=== PATIENT | male | born 1955 | race Caucasian/White ===

== ENCOUNTER 2020-01-25 09:38 | Inpatient (IN) | payer BC, SELFPAY ==
[~2020-01-25] VITALS: Ht 165.1 cm; Wt 97.5 kg
--- NOTE | 2020-01-25 09:50 | NUR ---
PT TO ROOM 14, AWAITING MD BARBOZA.
--- NOTE | 2020-01-25 10:19 | NUR ---
LAB AT BEDSIDE WITH DRAW, EKG OBTAINED
--- NOTE | 2020-01-25 10:29 | NUR ---
X RAY AT BEDSIDE
--- NOTE | 2020-01-25 10:58 | NUR ---
PT ARRIVED FROM HOME C/O INTERMITTENT SOB, DRY COUGH, LOW 02 SATURATIONS AT HOME, PT STS HE WOKE UP THIS MORNING AND CHECKED HIS 02 SAT WITH A PULSE OX HE HAS AT HOME, IT WAS IN THE LOW 80'S, DRY COUGH, FEVER, PT STS HE STARTED WITH THESE SYMPTOMS ON JANUARY 12, 2020 AND PROGRESSED, STS HE WAS TESTED FOR COVID 19 ON JANUARY 21, 2020 AND WAS TOLD HE WAS POSITIVE ON JANUARY 24, 2020. STS HIS FAMILY IS ALSO POSITIVE FOR COVID, PT WAS PLACED IN BED 14, AAOX4, NO ACUTE RESPIRATORY DISTRESS NOTED, CURRENT 02 SAT IS 97 % RA, PLACED IN GOWN, CONNECTED TO FULL CM, IV ACCESS OBTAINED, URINE SAMPLE OBTAINED AND SENT, SAFETY PRECAUTIONS IN PLACE, ISOLATION PRECAUTIONS IN PLACE, PT WEARING OWN FACEMASK, CALL LIGHT WITHIN REACH, WILL MONITOR.
[2020-01-25 11:02] LABS: CALCIUM 8.5 mg/dL (8.5-10.1); CARBON DIOXIDE 28.2 mmol/L (21-32); CREATININE SERUM 1.3 mg/dL (0.7-1.3); POTASSIUM SERUM 4.1 mmol/L (3.5-5.1)
--- NOTE | 2020-01-25 11:04 | NUR ---
CONTACTED RT REGARDING ABG DRAW, STS SHE WILL BE COMING TO ER FOR DRAW
[2020-01-25 11:08] LABS: BILIRUBIN TOTAL 1.1 mg/dL (0.20-1.00); C REACTIVE PROTEIN 8.3 mg/dL (<=0.9); TOTAL PROTEIN, SERUM 7.7 g/dL (6.4-8.2)
[2020-01-25 11:18] LABS: ALBUMIN 2.7 g/dL (3.4-5.0)
[2020-01-25 11:27] LABS: BASOPHIL % 1.2 % (0-2); PLATELET COUNT 217 x10^3mcL (130-400); RED CELL DISTRIBUTION WIDTH 12.7 % (11.5-14.5)
[2020-01-25 11:41] LABS: microscopic required? YES; urine erythrocyte 1+ (NEGATIVE)
[2020-01-25] MEDS ORDERED: SIMVASTATIN5 M2 PO (13:03)
[2020-01-25] MEDS ORDERED: LOSARTAN POTASS25 M1 PO (13:03)
[2020-01-25] MEDS ORDERED: LANTI SC (13:04)
[2020-01-25] MEDS ORDERED: FORTAMET500 M1 (13:04)
[2020-01-25] MEDS ORDERED: VICTOZA6 MG/M1 SC (13:04)
--- NOTE | 2020-01-25 14:13 | NUR ---
RECEIVED PT FROM ED VIA LESVIA, CAME IN DUE TO SOB, COUGH AND LOW OXYGEN SATURATION. PT STATED THAT HE FOUND OUT THAT HE WAS POSITIVE FOR COVID YESTERDAY. AAOX4. DENIES HEADACHE/DIZZINESS. ABLE TO FOLLOW COMMANDS. NO SOB NOTED, LUNG SOUNDS DIMINISHED ON AUSCULTATION. DENIES CHEST PAIN/PRESSURE. DENIES ABDOMINAL DISCOMFORT. BOWEL SOUNDS ACTIVE. VOIDS. IV SITE PATENT AND INTACT. SIDE RAILS UPX2. CALL LIGHT ON REACH. ENDORSED TO PRIMARY NURSE MARU FOR CONTINUITY OF CARE
[2020-01-25] MEDS ORDERED: GLUMETZA1000 MG PO (14:30)
[2020-01-25 14:37] VITALS: BP 149/80
[2020-01-25 14:44] VITALS: Ht 165.1 cm; Wt 97.5 kg
[2020-01-25 15:32] LABS: AMPHETAMINE QUAL UR NONE DETECTED (See below)
[2020-01-25 15:44] LABS: PHOSPHOROUS 3.9 mg/dL (2.5-4.9)
[2020-01-25 15:45] LABS: CHOLESTEROL/HDL RATIO 3.8
[2020-01-25 15:53] LABS: BILIRUBIN DIRECT 0.58 mg/dL (0.0-0.2); BILIRUBIN TOTAL 1.02 mg/dL (0.20-1.00); TOTAL PROTEIN, SERUM 7.7 g/dL (6.4-8.2)
[2020-01-25 15:59] LABS: ALBUMIN 2.7 g/dL (3.4-5.0)
[2020-01-25 16:15] LABS: T3 TOTAL 0.86 ng/mL
[2020-01-25 16:28] LABS: FREE T4 1.32 ng/dL (0.76-1.46); FREE THYROXINE INDEX 2.9 ug/dL (1.4-4.5); T4(THYROXINE) 8.4 ug/dL (4.7-13.3)
[2020-01-25 17:02] LABS: CALCIUM 8.4 mg/dL (8.5-10.1); CARBON DIOXIDE 26.4 mmol/L (21-32); CHLORIDE SERUM 97 mmol/L (98-107); CREATININE SERUM 1.1 mg/dL (0.7-1.3); GFR1 > 60 mL/min; GLUCOSE SERUM 175 mg/dL (74-106); POTASSIUM SERUM 4.7 mmol/L (3.5-5.1); SODIUM SERUM 131 mmol/L (136-145)
--- NOTE | 2020-01-25 19:18 | NUR ---
FAMILY UPDATED. ENDORSED CARE TO NIGHT RN.
--- NOTE | 2020-01-25 20:01 | NUR ---
PT DENY SOB/ RESP DISTRESS AT THE MOMENT SAT 96% ON RA . TELE 17 NRS . PIV INTACT INFUSING WELL , IV SITE PATENT . PERNELL CON'T TO MONITOR AND ASSIST PT WITH CARE .
[2020-01-25 20:08] VITALS: BP 139/82
--- NOTE | 2020-01-26 05:30 | NUR ---
02 SAT DROPPPED TO 87 PT'S ON RA , PLACED PT ON 2L N/C SAT WENT UP TO 94% , WILL CON'T TO MONITOR PT ZENOBIA . TELE SR . PIV INTACT INFUSING WELL .
[2020-01-26 05:38] VITALS: BP 136/70
--- NOTE | 2020-01-26 06:24 | NUR ---
SAT REMAINED 94% PT'S ON HIS SIDE UNABLE TO PRONE , WILL CON'T TO MONITOR AND ASSIST PT WITH CARE , TELE .
[2020-01-26 07:25] LABS: CALCIUM 8.2 mg/dL (8.5-10.1); CARBON DIOXIDE 24.4 mmol/L (21-32); CHLORIDE SERUM 99 mmol/L (98-107); CREATININE SERUM 1.1 mg/dL (0.7-1.3); GFR1 > 60 mL/min; GLUCOSE SERUM 206 mg/dL (74-106); MAGNESIUM 2.2 mg/dL (1.8-2.4); PHOSPHOROUS 3.2 mg/dL (2.5-4.9); POTASSIUM SERUM 3.7 mmol/L (3.5-5.1); SODIUM SERUM 133 mmol/L (136-145)
[2020-01-26 07:56] LABS: BASOPHIL % 0.3 % (0-2); PLATELET COUNT 239 x10^3mcL (130-400); RED CELL DISTRIBUTION WIDTH 12.5 % (11.5-14.5)
[2020-01-26 07:57] VITALS: BP 137/83
--- NOTE | 2020-01-26 08:00 | NUR ---
RECEIVED PT FROM NIGHT NURSE. SAO2 94% ON 2L NC. BREATHING UNLABORED, NO ACUTE DISTRESS. PT DENIES PAIN AND APPEARS COMFORTABLE. HE IS AMBULATORY AND HAS BATHROOM PRIVELEGES. SAFETY PRECAUTIONS IN PLACE. WILL CONTINUE TO MONITOR.
[2020-01-26 08:31] LABS: BILIRUBIN DIRECT 0.29 mg/dL (0.0-0.2); BILIRUBIN TOTAL 0.5 mg/dL (0.20-1.00); TOTAL PROTEIN, SERUM 7.6 g/dL (6.4-8.2)
[2020-01-26 08:32] LABS: ALBUMIN 2.3 g/dL (3.4-5.0)
[2020-01-26 12:24] VITALS: BP 149/83
--- NOTE | 2020-01-26 14:57 | NUR ---
DURING HOME O2 EVALUATION 1415, PT WAS ON 1L NASAL CANNULA WITH SPO2 93%. PT DID NOT QUALIFY FOR HOME O2 AND TOLERATED WELL ON RA, SO LEFT THE PT ON RA AND STILL AT 93%. NO NOTED DISTRESS OR SOB.
[2020-01-26 17:22] VITALS: BP 151/82
--- NOTE | 2020-01-26 19:45 | NUR ---
REPORT FROM NIDA SCHMITT. AXOX4 NO S/S OF DISTRESS OR DISCOMFORT. PT BREATHING EVEN AND UNLABORED ON RA 94% SPO2. CTA ENCOURAGED TO PRONE. GEN WEAKNESS. SL IV LEFT WRIST. NO S/S OF INFILTRATION. FLUSHED. TELE 17 NSR AT THIS TIME. ACTUVE BOWELS. SOFT, ROUND NON TENDER. STRONF PEDAL AND RADIAL PULSES. NO EDEMA. VIODS FREELY IN URINAL AT BEDSIDE. BED IN LOW POSITION, SIDE RAILS UPX2, CALL LIGHT WITHIN REACH. WILL CONTINUE TO MONITOR PATIENT AND OFFER SUPPORT.
--- NOTE | 2020-01-26 20:13 | NUR ---
PT ENDORSED TO NIGHT NURSE. HE WAS EVALUATED FOR HOME O2 AND SAO2 REMAINED 92% OR ABOVE. PT WAS PLACED ON ROOM AIR BY RT. SAO2 90%. NO ACUTE DISTRESS THROUGHOUT SHIFT. CONSISTENTLY DENIED PAIN. SAFETY PRECAUTIONS IN PLACE.
[2020-01-26 21:44] VITALS: BP 128/77
--- NOTE | 2020-01-27 01:04 | NUR ---
PATIENT WAS ABLE TO TOLERATE COV. PLAS[place] WELL. VITALS STABLE 97.7 18 99% SPO2 83 HR BP 119/62. PT IS RESTING WITH EYES CLOSED, NO S/S OF DISTRESS, BREATHING EVEN AND UNLABORED ON 15 NRB AND 1OL OXYMIZER. IV IS RUNNING ABX. ABX LATE DUE TO PLASMA TRANFUSION.
--- NOTE | 2020-01-27 01:08 | NUR ---
PT RESTING EYES CLOSED. NO S/S OF DISTRESS OR DISCOMFORT. PT BREATHING EVEN AND UNLABORED ON RA. BED IN LOW POSITON, SIDE RAILS UP X2, CALL LIGHT WITHIN REACH. IV PATENT SL NO REPORTS FROM TELE.
--- NOTE | 2020-01-27 05:57 | NUR ---
PT RESTING. NO S/S OF DISTRESS OR DISCOMFORT. OT BREATHING EVEN AND UNLABORED ON RA 95% PT STATES HE FEEL WELL THIS MORNING. TELE 17 NSR AT THIS TIME. IV IN THE LEFT WRIST SL. NO S/S OF INFILTRATION. BED IN LOW POSITION, SIDE RAILS UP X2, CALL LIGHT WITHIN REACH.
[2020-01-27 06:21] VITALS: BP 125/77
[2020-01-27 06:59] LABS: BASOPHIL % 0.1 % (0-2); PLATELET COUNT 271 x10^3mcL (130-400); RED CELL DISTRIBUTION WIDTH 12.8 % (11.5-14.5)
[2020-01-27 07:09] LABS: CALCIUM 8.3 mg/dL (8.5-10.1); CHLORIDE SERUM 102 mmol/L (98-107); CREATININE SERUM 1.1 mg/dL (0.7-1.3); GFR1 > 60 mL/min; GLUCOSE SERUM 154 mg/dL (74-106); PHOSPHOROUS 3.6 mg/dL (2.5-4.9); POTASSIUM SERUM 3.4 mmol/L (3.5-5.1); SODIUM SERUM 136 mmol/L (136-145)
[2020-01-27 09:04] VITALS: BP 152/86
[2020-01-27 12:59] VITALS: BP 137/82
[2020-01-27] MEDS ORDERED: TYL325 PO (17:52)
[2020-01-27] MEDS ORDERED: BG FS (17:53)
[2020-01-27] MEDS ORDERED: DEC10I PO (17:54)
[2020-01-27 18:02] VITALS: BP 144/78
--- NOTE | 2020-01-27 18:05 | NUR ---
AAO TIMES 4. TELE # 17 SR. VS'S STABLE. O2 SAT ON RA 93%. NO C/O SOB. NO C/O PAIN. COOPERATIVE. HE IS BEING DISCHARGED HOME ON WITHOUT OXYGEN.
[2020-01-27] MEDS ORDERED: DECADRON6 MG PO (18:25)
--- NOTE | 2020-01-27 18:58 | NUR ---
GAVE DISCHARGE INSTRUCTIONS AND PRESCRIPTION FOR DEXAMETHASON PO SENT TO HIS [facility] BY DR STYLES. REMOVED SALINE LOCK, ANGIO INTACT. HE VERBALIZED "I UNDERSTAND" TO ALL INSTRUCTIONS. I WHEELED HIM DOWN BY W/C TO HIS WAITING IN CAR.
== END 2020-01-27 18:42 | disposition home or self-care (01) | DRG 177 ==
LOC: ED 09:38 → DU 12:58
PROVIDERS: Emergency Medicine; ADMIT Family Medicine; ATTEND Family Medicine
DX: U07.1 COVID-19 (principal); J12.89 Other viral pneumonia; K85.90 Acute pancreatitis without necrosis or infection, unspecified; J96.01 Acute respiratory failure with hypoxia; E87.1 Hypo-osmolality and hyponatremia; D68.59 Other primary thrombophilia; I10 Essential (primary) hypertension; E11.65 Type 2 diabetes mellitus with hyperglycemia; Z79.4 Long term (current) use of insulin; Z79.899 Other long term (current) drug therapy
CPT/HCPCS: 36600; 82962; 83880; 84439; 87804; G0378; J0456; J0696; J1100; J1650; J1815; J3535; J7030; J7050; Q0092; U0003-CS